=== PATIENT | male | born 1975 | race African-American/Black ===

== ENCOUNTER 2022-04-01 03:46 | Emergency (ER) | payer BC ==
[~2022-04-01] VITALS: Ht 177.8 cm; Wt 100.0 kg
[2022-04-01 04:04] VITALS: BP 155/88
== END 2022-04-01 07:40 | disposition left against medical advice (07) ==
LOC: ER 03:46
DX: Z53.21 Procedure and treatment not carried out due to patient leaving prior to being seen by health care provider (principal)
CPT/HCPCS: 93005